=== PATIENT | female | born 1950 | race Caucasian/White ===

== ENCOUNTER 2018-06-19 11:29 | Observation (INO) | payer MEDICARE ==
[2018-06-12 11:53] VITALS: BP 166/109
[~2018-06-19] VITALS: Ht 157.5 cm; Wt 86.8 kg
[~2018-06-19 11:29] MED LIST: ALPR0.254 PO; BENA20TA4 PO; BUPR150T73 PO; LEVO100T PO
[2018-07-03] MEDS ORDERED: LACTATED RINGERS 1,000 ML IV SCH (16:11)
[2018-07-03] MEDS ORDERED: GABAPENTIN 300 MG CAPSULE ONE (16:27)
[2018-07-03] MEDS ORDERED: SCOPOLAMINE PATCH, 1.5MG PATCH.TD72 TD ONE ×2 (16:28→16:30)
[2018-07-03] MEDS ORDERED: ACETAMINOPHEN 500 MG TABLET ONE (16:28)
[2018-07-03] MEDS ORDERED: GABAPENTIN 300 MG CAPSULE PO ONE (16:30)
[2018-07-03] MEDS ORDERED: ACETAMINOPHEN 500 MG TABLET PO ONE (16:30)
[2018-07-03] MEDS ORDERED: BUPIVACAINE/PF 0.25% ONE (17:06)
[2018-07-03] MEDS ORDERED: EPINEPHRINE 1 MG/ML, 1ML ONE (17:06)
[2018-07-03] MEDS ORDERED: FENTANYL PF 250 MCG/5ML ONE (17:08)
[2018-07-03] MEDS ORDERED: MIDAZOLAM 1 MG/ML, 2ML ONE (17:08)
[2018-07-03] MEDS ORDERED: ROCURONIUM 10MG/ML,5ML ONE (17:15)
[2018-07-03] MEDS ORDERED: GLYCOPYRROLATE 0.2MG/1ML, 5ML ONE (17:15)
[2018-07-03] MEDS ORDERED: DEXAMETHASONE 4 MG/ML, 1ML ONE (17:15)
[2018-07-03] MEDS ORDERED: NEOSTIGMINE 1 MG/ML, 10ML ONE (17:15)
[2018-07-03] MEDS ORDERED: SUCCINYLCHOLINE 20 MG/ML, 10ML ONE (17:15)
[2018-07-03] MEDS ORDERED: PROPOFOL 10 MG/ML, 20ML ONE (17:15)
[2018-07-03] MEDS ORDERED: ONDANSETRON 2MG/ML, 2ML ONE (17:15)
[2018-07-03] MEDS ORDERED: CEFAZOLIN 1,000 MG ONE (17:15)
[2018-07-03] MEDS ORDERED: ONDANSETRON ODT 8 MG PO PRN (18:00)
[2018-07-03] MEDS ORDERED: ONDANSETRON 2MG/ML, 2ML IV PRN (18:00)
[2018-07-03] MEDS ORDERED: hydrALAzine 20 MG/ML, 1ML IV PRN (18:00)
[2018-07-03] MEDS ORDERED: HYDROmorphone 1 MG/ML, 1ML IV PRN (18:00)
[2018-07-03] MEDS ORDERED: LABETALOL 5MG/ML, 20ML IV PRN (18:00)
[2018-07-03] MEDS ORDERED: OXYcodone 5 MG/5 ML ORAL.SOL UDC PO PRN (18:00)
[2018-07-03] MEDS ORDERED: PROMETHAZINE 12.5 MG SUPP PR PRN (18:00)
[2018-07-03] MEDS ORDERED: OXYcodone 5 MG/5 ML ORAL.SOL UDC ONE (18:43)
[2018-07-03] MEDS ORDERED: FENTANYL PF 100 MCG/2ML ONE (18:43)
[2018-07-03] MEDS: FENTANYL PF 100 MCG/2ML IV PRN ×2 (18:45→19:01)
[2018-07-03] MEDS ORDERED: hydrALAzine 20 MG/ML, 1ML ONE (19:10)
[2018-07-03] MEDS ORDERED: HYDROmorphone 2 MG/ML, 1ML ONE (19:16)
[2018-07-03] MEDS: ONDANSETRON 2MG/ML, 2ML IVPush PRN (21:29)
[2018-07-04] MEDS ORDERED: OXYcodone/APAP 7.5/325MG TABLET PO PRN (00:30)
[2018-07-04 03:28] VITALS: BP 134/73
[2018-07-04] MEDS: ONDANSETRON 2MG/ML, 2ML IVPush PRN (03:54)
[2018-07-04 07:31] VITALS: BP 96/57
[2018-07-04] MEDS ORDERED: ACETAMINOPHEN 325 MG TABLET PO PRN (11:30)
[2018-07-04 14:26] VITALS: BP 95/53
== END 2018-07-04 16:26 | disposition home or self-care (01) ==
LOC: EDSTATUS 07-03 09:00 → INTOOBSV 07-03 16:00 → ORIP 07-03 16:00 → 4NOR 07-03 19:55 → DCLOUNGE 07-04 15:30
PROVIDERS: ADMIT Specialist; ATTEND Specialist
DX: N73.6 Female pelvic peritoneal adhesions (postinfective) (principal); K66.0 Peritoneal adhesions (postprocedural) (postinfection); N80.9 Endometriosis, unspecified; F41.9 Anxiety disorder, unspecified; F51.19 Other hypersomnia not due to a substance or known physiological condition; I10 Essential (primary) hypertension; Z88.2 Allergy status to sulfonamides
CPT/HCPCS: 44180; 88305; 96374; 96376; G0378; J0171; J0330; J0690; J1100; J1170; J2250; J2405; J2704; J2710; J3010; J3490; J7120